=== PATIENT | female | born 1955 | race African-American/Black ===

== ENCOUNTER 2017-10-14 22:10 | Emergency (ER) | payer OTHER ==
[2017-10-14] MEDS ORDERED: TRAMADOL HCL 50 MG TABLET PO ONE (23:37)
--- NOTE | 2017-10-14 23:45 | ER Document Report ---
ED General - General TRAVEL OUTSIDE OF THE [place] IN LAST 30 DAYS: No - General Chief Complaint: Leg Pain Stated Complaint: PAIN IN LEG AND GROIN AREA Time Seen by Provider: 10/14/17 23:24 Notes: Patient is 61 female presents with complaint of pain rating from her back into the right inguinal area down her right leg. She also notes large amount of swelling in her right leg which is new. She says she was has a small mild swelling but she is equal in both legs and now she has a very swollen painful right leg. She was seen by her primary care doctor and Monday. She was placed on ibuprofen and Lyrica due to concerns for sciatica. She says now she has burning type pain running from her knee down and a lot of pain into her right inguinal area and her leg is very swollen. No recent fevers. No infections. No trauma. No history of DVT or PE. No other complaints at this time. (RON VILLANUEVA) - Related Data Allergies/Adverse Reactions: No Known Allergies Allergy (Unverified 10/14/17 22:14) Past Medical History - Social History Smoking Status: Unknown if Ever Smoked Frequency of alcohol use: Occasional Drug Abuse: None Family History: Reviewed & Not Pertinent Review of Systems - Review of Systems Notes: My Normal Review Basic REVIEW OF SYSTEMS: CONSTITUTIONAL : Denies fever, chills, or sweats. Denies recent illness. CARDIOVASCULAR: Denies chest pain. RESPIRATORY: Denies cough, cold, or chest congestion. Denies shortness of breath, difficulty breathing, or wheezing. GASTROINTESTINAL: Denies abdominal pain. Denies nausea, vomiting, or diarrhea. MUSCULOSKELETAL: Back pain. Right leg pain and swelling. SKIN: Denies rash or skin lesions. NEUROLOGICAL: Denies sensory or motor loss. ALL OTHER SYSTEMS REVIEWED AND NEGATIVE. (RON VILLANUEVA) Physical Exam - Vital signs Vitals: Temp Pulse Resp BP Pulse Ox 98.1 F 66 16 166/69 H 95 10/14/17 22:33 10/14/17 22:33 10/14/17 22:33 10/14/17 22:33 10/14/17 22:33 - Notes Notes: General Appearance: Well nourished, alert, cooperative, no acute distress, moderate obvious discomfort. Vitals: reviewed, See vital signs table. Head: no swelling or tenderness to the head Eyes: PERRL, EOMI, Conjuctiva clear Mouth: No decreasd moisture Throat: No tonsillar inflammation, No airway obstruction, No lymphadenopathy Neck: Supple, no neck tenderness, No thyromegaly Lungs: No wheezing, No rales, No rhonci, No accessory muscle use, good air exchange bilaterally. Heart: Normal rate, Regular rythm, No murmur, no rub Abdomen: Normal BS, soft, No rigidity, No abdominal tenderness, some pain in the right inguinal area to palpation. No lump or hernia to palpation. Back: Pain to palpation over the right gluteal region. Lumbar spine is nontender. Extremities: strength 5/5 in all extremities, good pulses in all extremities, right lower extremities much more swollen comparison to the left. Patient has tenderness to palpation all along her right lower extremity. Good distal sensation. I did do a bedside ultrasound looking for evidence of large DVT. Patient's femoral vein is approximately 80% compressible. She does have good augmentation with calf squeeze. Skin: warm, dry, appropriate color, no rash Neuro: speech clear, oriented x 3, normal affect, responds appropriately to questions. (RON VILLANUEVA) Course - Re-evaluation Re-evalutation: 10/15/17 09:55 DVT study was negative for blood clot. Will proceed with discharge instructions per Dr. Villanueva. (DAVY GLASGOW) 10/15/17 23:10 Patient's radiation of pain is very consistent with that of sciatica. I did prescribe her some little bit stronger for pain but told her to only use this when absolutely necessary. I did order a DVT study of her leg mainly because her right leg was much more edematous than her left. She does have a history of ongoing edema in her lower extremities but I was uncomfortable with the amount of difference in swelling in her right leg versus left. Dr. Glasgow followed up on the DVT study which was negative. Patient was discharged home with pain medication and instructions to return to ER if she has worsening of her symptoms. She had no signs of cauda equina syndrome. Dictation of this chart was performed using voice recognition software; therefore, there may be some unintended grammatical errors. (RON VILLANUEVA) - Vital Signs Vital signs: Temp Pulse Resp BP Pulse Ox 98.1 F 62 14 188/65 H 98 10/15/17 10:05 10/15/17 10:05 10/15/17 10:05 10/15/17 10:05 10/15/17 10:05 Discharge - Discharge Clinical Impression: Leg pain Qualifiers: Laterality: right Qualified Code(s): M79.604 - Pain in right leg Back pain Qualifiers: Back pain location: low back pain Chronicity: chronic Back pain laterality: right Sciatica presence: with sciatica Sciatica laterality: sciatica of right side Qualified Code(s): M54.41 - Lumbago with sciatica, right side Disposition: HOME, SELF-CARE Instructions: Oral Narcotic Medication ([facility]) Additional Instructions: Please do not take the pain medicine more than prescribed. [facility] for [facility]. Please return to the ER immediately if you develop worsening pain, leg weakness, loss of bowel control, inability to urinate, or if you feel that you are worsening n any way. Prescriptions: Hydrocodone/Acetaminophen [Colton 5-325 mg Tablet] 1 tab PO Q4 PRN #16 tablet PRN Reason: For [employer] Pain Forms: Return to Work
[2017-10-15] MEDS ORDERED: HYDROMORPHONE HCL INJ/PF 2 MG/ML AMPULE IM ONE (03:26)
--- NOTE | 2017-10-15 09:46 | RADIOLOGY REPORT (SQ) ---
EXAM DESCRIPTION: VENOUS UNILATERAL LOWER COMPLETED DATE/TIME: 10/15/2017 9:38 am REASON FOR STUDY: right lower extremity swelling COMPARISON: None. TECHNIQUE: Dynamic and static ruvalcaba scale and color images acquired of the right leg venous system. S elected spectral images acquired with additional compression and augmentation maneuvers. The contrala teral common femoral vein and saphenofemoral junction were also imaged. Images stored on PACS. LIMITATIONS: None. FINDINGS: COMMON FEMORAL: Normal phasicity, compression and augmentation. No visualized echogenic ma terial on ruvalcaba scale. No defects on color images. FEMORAL: Normal compression and augmentation. No visualized echogenic material on ruvalcaba scale. No defe cts on color images. POPLITEAL: Normal compression, augmentation. No visualized echogenic material on ruvalcaba scale. No defec ts on color images. CALF VESSELS: Normal compression, augmentation. No visualized echogenic material on ruvalcaba scale. No de fects on color images. GSV and SSV: Normal compression, augmentation. No visualized echogenic material on ruvalcaba scale. No def ects on color images. ANY DEEP VENOUS INSUFFICIENCY: Not evaluated. ANY EVIDENCE OF POPLITEAL CYST: No. OTHER: No other significant finding. CONTRALATERAL COMMON FEMORAL VEIN AND SAPHENOFEMORAL JUNCTION: Normal phasicity, compression and augmentation. No visualized echogenic material on ruvalcaba scale. No de fects on color images. IMPRESSION: NO EVIDENCE DVT OR SVT IN THE RIGHT LEG. TECHNICAL DOCUMENTATION: JOB ID: [id number] [employer]- All Rights Reserved Reading location - [facility]workstation name: [email or web address]
[2017-10-15 10:07] VITALS: BP 188/65
== END 2017-10-15 10:11 | disposition home or self-care (01) ==
LOC: ER 22:10
DX: M54.41 Lumbago with sciatica, right side (principal); R60.0 Localized edema
CPT/HCPCS: 99284; 96372; 93971; J1170